=== PATIENT | male | born 1960 | race Caucasian/White ===

== ENCOUNTER 2016-06-13 05:28 | Emergency (ER) | payer OTHER ==
[2016-06-13] MEDS ORDERED: IBUPROFEN 400 MG TABLET (FP) PO ONE (05:33)
--- NOTE | 2016-06-13 05:37 | PDOC ---
History of Present Illness - General Chief Complaint: Ear Problem Stated Complaint: RIGHT EAR PAIN Time Seen by Provider: 06/13/16 05:33 History Source: Patient Exam Limitations: No Limitations - History of Present Illness Initial Comments: 06/13/16 05:35 56 YM DM, HTN; presents to er c/o rt ear ache on and off for 1 week. congestion but no fever. no head ache. no throat pain. no tinnitus. no n/v. n nad Timing/Duration: 1 week Past History - Past Medical History Allergies/Adverse Reactions: Allergies Allergy/AdvReac Type Severity Reaction Status Date / Time No Known Allergies Allergy Verified 05/04/16 03:48 Home Medications: Ambulatory Orders Ramipril 10 mg PO DAILY 12/24/12 Aspirin [ASA -] 325 mg PO DAILY 05/15/14 Atorvastatin Ca [Lipitor] 80 mg PO HS 07/25/14 Ibuprofen 800 mg PO TID #20 tablet 07/28/15 Metformin HCl [Glucophage] 1,000 mg PO BID 07/28/15 Tamsulosin HCl [Flomax] 0.4 mg PO DAILY #7 cap.er.24h 07/28/15 Ondansetron [Zofran Odt -] 4 mg SL BID #14 od.tablet 07/31/15 Oxycodone HCl/Acetaminophen [Percocet 5-325 mg Tablet] 1 - 2 tab PO Q6H PRN #12 tab MDD 8 05/04/16 Anemia: No Asthma: No Cancer: No Cardiac Disorders: No CVA: No COPD: No CHF: No Dementia: No Diabetes: Yes (NIDDM) GI Disorders: Yes (RECTAL BLEEDING) Disorders: Yes (PROSTATITIS) HTN: Yes Hypercholesterolemia: Yes Kidney Stones: Yes Liver Disease: No Seizures: No Thyroid Disease: No - Surgical History Abdominal Surgery: No Appendectomy: No Cardiac Surgery: No Cholecystectomy: No Lung Surgery: No Neurologic Surgery: No Orthopedic Surgery: Yes (FX OF RT ARM) - Immunization History Immunization Up to Date: No - Psycho/Social/Smoking Cessation Hx Anxiety: Yes Suicidal Ideation: No Smoking Status: Yes Smoking History: Current every day smoker Have you smoked in the past 12 months: Yes Number of Cigarettes Smoked Daily: 10 If you are a former smoker, when did you quit?: 1 MONTH AGO 'Breaking Loose' booklet given: 05/04/16 Hx Alcohol Use: Yes (TONIGHT) Drug/Substance Use Hx: No Substance Use Type: Alcohol Hx Substance Use Treatment: No *Physical Exam - Physical Exam General Appearance: Yes: Nourished, Appropriately Dressed. No: Apparent Distress HEENT: positive: EOMI, JOHNNY, Normal ENT Inspection, Hearing Grossly Normal. negative: Hearing Decreased, TM Bulging, TM Dull, TM Erythema Respiratory/Chest: positive: Lungs Clear. negative: Respiratory Distress Cardiovascular: positive: Regular Rhythm, Regular Rate Lymphatic: negative: Adenopathy Neurologic: positive: Fully Oriented, Alert, Normal Mood/Affect, Normal Response , Motor Strength 5/5 *DC/Admit/Observation/Transfer Diagnosis at time of Disposition: Ear pain, right Congested ear Qualifiers: Laterality: right Qualified Code(s): H93.8X1 - Other specified disorders of right ear - Discharge Dispostion Disposition: HOME Condition at time of disposition: Good - Patient Instructions Additional Instructions: PLENTY OF FLUIDS (WATER) MOTRIN/TYLENOL FOR FEVER OR PAIN SUDAFED PRESCRIBED (MONITOR YOUR BLOOD PRESSURE) REST RETURN IF FEVER, VOMITING, SEVERE PAIN SEE YOUR DOCTOR WEDNESDAY
[2016-06-13 05:42] VITALS: BP 159/89; PULSE 89; TEMP 98.2; BMI 40.1
== END 2016-06-13 05:48 | disposition home or self-care (01) ==
LOC: FER 05:28
DX: H93.8X1 Other specified disorders of right ear (principal); I10 Essential (primary) hypertension; E11.9 Type 2 diabetes mellitus without complications; Z79.84 Long term (current) use of oral hypoglycemic drugs; E78.00 Pure hypercholesterolemia, unspecified; F17.210 Nicotine dependence, cigarettes, uncomplicated
CPT/HCPCS: 99282-25

== ENCOUNTER 2016-11-07 16:40 | Emergency (ER) | payer OTHER ==
[2016-11-07] MEDS ORDERED: KETOROLAC TROMETHAMINE 60 MG/2 ML VIAL IM ONE (17:06)
--- NOTE | 2016-11-07 17:08 | PDOC ---
History of Present Illness - General Chief Complaint: Pain, Acute Stated Complaint: KIDNEY STONE Time Seen by Provider: 11/07/16 17:06 History Source: Patient Exam Limitations: No Limitations - History of Present Illness Initial Comments: 11/07/16 17:06 The patient is a 56-year-old male with a significant past medical history of ureterolithiasis (approximately 12 episodes) who presents to the emergency department with left flank pain. He states that the pain began suddenly approximately 2 hours ago, and has been waxing and waning. At maximum intensity he rates it as severe pain. It is a sharp stabbing pain. It is identical to his prior episodes of ureterolithiasis. He has nausea but no vomiting. He reports urinary urgency and hesitancy, but denies dysuria, hematuria. He denies abdominal pain. He denies lower extremity weakness or paresthesias. Past History - Past Medical History Allergies/Adverse Reactions: Allergies Allergy/AdvReac Type Severity Reaction Status Date / Time No Known Allergies Allergy Verified 05/04/16 03:48 Home Medications: Ambulatory Orders Ramipril 10 mg PO DAILY 12/24/12 Aspirin [ASA -] 81 mg PO DAILY 05/15/14 Atorvastatin Ca [Lipitor] 80 mg PO HS 07/25/14 Metformin HCl [Glucophage] 1,000 mg PO BID 07/28/15 Naproxen [Naprosyn] 500 mg PO BID PRN #20 tablet 11/07/16 Oxycodone HCl/Acetaminophen [Percocet 5-325 mg Tablet] 1 - 2 combo PO Q4H PRN # 20 tablet MDD 6 11/07/16 Tamsulosin HCl [Flomax] 0.4 mg PO DAILY #7 capsule 11/07/16 Anemia: No Asthma: No Cancer: No Cardiac Disorders: No CVA: No COPD: No CHF: No Dementia: No Diabetes: Yes (NIDDM) GI Disorders: Yes (RECTAL BLEEDING) Disorders: Yes (PROSTATITIS) HTN: Yes Hypercholesterolemia: Yes Kidney Stones: Yes Liver Disease: No Seizures: No Thyroid Disease: No - Surgical History Abdominal Surgery: No Appendectomy: No Cardiac Surgery: No Cholecystectomy: No Lung Surgery: No Neurologic Surgery: No Orthopedic Surgery: Yes (FX OF RT ARM) - Immunization History Immunization Up to Date: No - Psycho/Social/Smoking Cessation Hx Anxiety: Yes Suicidal Ideation: No Smoking Status: Yes Smoking History: Current every day smoker Have you smoked in the past 12 months: Yes Number of Cigarettes Smoked Daily: 10 If you are a former smoker, when did you quit?: 1 MONTH AGO 'Breaking Loose' booklet given: 06/13/16 Hx Alcohol Use: Yes (TONIGHT) Drug/Substance Use Hx: No Substance Use Type: Alcohol Hx Substance Use Treatment: No Review of Systems - Review of Systems Comments:: 11/07/16 17:07 CONSTITUTIONAL: Absent: fever, chills, diaphoresis, generalized weakness, malaise, loss of appetite HEENT: Absent: rhinorrhea, nasal congestion, throat pain, throat swelling, difficulty swallowing, mouth swelling, ear pain, eye pain, visual Changes CARDIOVASCULAR: Absent: chest pain, loss of consciousness, palpitations, irregular heart rate, peripheral edema RESPIRATORY: Absent: cough, shortness of breath, dyspnea with exertion, orthopnea, wheezing, stridor, hemoptysis GASTROINTESTINAL: Present: Nausea Absent: abdominal pain, abdominal distension, vomiting, diarrhea, constipation, melena, hematochezia GENITOURINARY: Present: Flank pain, urgency, hesitancy Absent: dysuria, frequency, hematuria, genital pain MUSCULOSKELETAL: Absent: myalgia, arthralgia, joint swelling SKIN: Absent: rash, itching, pallor HEMATOLOGIC/IMMUNOLOGIC: Absent: easy bleeding, easy bruising, lymphadenopathy, frequent infections ENDOCRINE: Absent: unexplained weight gain, unexplained weight loss, heat intolerance, cold intolerance NEUROLOGIC: Absent: headache, focal weakness or paresthesias, dizziness, unsteady gait, seizure, mental status changes, bladder or bowel incontinence PSYCHIATRIC: Absent: anxiety, depression, suicidal or homicidal ideation, hallucinations. *Physical Exam - Physical Exam Comments: 11/07/16 17:08 GENERAL: Well developed, well nourished. Awake and alert. No acute distress. HEENT: Normocephalic, atraumatic. PERRLA, EOMI. No conjunctival pallor. Sclera are non- icteric. Moist mucous membranes. Oropharynx is clear. NECK: Supple. Full ROM. No JVD. Carotid pulses 2+ and symmetric, without bruits. No thyromegaly. No lymphadenopathy. CARDIOVASCULAR: Regular rate and rhythm. No murmurs, rubs, or gallops. Distal pulses are 2+ and symmetric. PULMONARY: No evidence of respiratory distress. Lungs clear to auscultation bilaterally. No wheezing, rales or rhonchi. ABDOMINAL: Soft. Non-tender. Non-distended. No rebound or guarding. No organomegaly. Normoactive bowel sounds. MUSCULOSKELETAL Left-sided CVA tenderness Normal range of motion at all joints. No bony deformities or tenderness. EXTREMITIES: No cyanosis. No clubbing. No edema. No calf tenderness. SKIN: Warm and dry. Normal capillary refill. No rashes. No jaundice. NEUROLOGICAL: Alert, awake, appropriate. Cranial nerves 2-12 intact. No deficits to light touch and temperature in face, upper extremities and lower extremities. No motor deficits in the in face, upper extremities and lower extremities. Normoreflexic in the upper and lower extremities. Normal speech. Toes are down- going bilaterally. Gait is normal without ataxia. PSYCHIATRIC: Cooperative. Good eye contact. Appropriate mood and affect. Medical Decision Making - Medical Decision Making 11/07/16 17:08 The patient is well-appearing and in no acute distress His clinical presentation is consistent with ureterolithiasis He denies a history of renal disease, and would prefer to avoid extensive workup , including labs and imaging Will administer intramuscular Toradol and observe Will obtain urinalysis 11/07/16 17:31 Pain is significantly improved Urinalysis noted, without evidence of infection Will administer Percocet and continue to observe 11/07/16 17:44 Pain is almost completely resolved He would like to go home He understands the need to return for further workup including imaging to rule out hydroureter/hydronephrosis, should his symptoms return or worsen Clinical impression: Ureterolithiasis I discussed the physical exam findings, ancillary test results and final diagnoses with the patient. I answered all of the patient's questions. The patient was satisfied with the care received and felt comfortable with the discharge plan and treatment plan. The patient will call their primary care physician within 24 hours to arrange follow-up and will return to the Emergency Department with any new, persistent or worsening symptoms. *DC/Admit/Observation/Transfer Diagnosis at time of Disposition: Renal colic on left side - Discharge Dispostion Disposition: HOME Condition at time of disposition: Improved - Prescriptions Prescriptions: Tamsulosin HCl [Flomax] 0.4 mg PO DAILY #7 capsule Naproxen [Naprosyn] 500 mg PO BID PRN #20 tablet PRN Reason: Pain Oxycodone HCl/Acetaminophen [Percocet 5-325 mg Tablet] 1 - 2 combo PO Q4H PRN # 20 tablet MDD 6 PRN Reason: Pain - Referrals Referrals: Nile Martinez MD [Staff Physician] - Call tomorrow - Patient Instructions Printed Discharge Instructions: DI for Kidney Stones Additional Instructions: Return to the emergency department immediately with ANY new, persistent or worsening symptoms. You MUST call and follow up with your doctor tomorrow. Please make sure your doctor reviews the results of your emergency department evaluation. - Post Discharge Activity Work/School Note: Back to Work
[2016-11-07 17:18] LABS: URINE APPEARANCE Clear; URINE BILIRUBIN Negative (NEGATIVE); URINE GLUCOSE (UA) Trace (NEGATIVE); URINE KETONE Trace (NEGATIVE); URINE LEUK ESTERASE Negative (NEGATIVE); URINE NITRITE Negative (NEGATIVE); URINE UROBILINOGEN 0.2 E.U/dl (0.2-1.0)
[2016-11-07 17:20] LABS: URINE BLOOD 3+ (NEGATIVE); URINE COLOR YELLOW; URINE PROTEIN 1+ (NEGATIVE)
[2016-11-07] MEDS ORDERED: ONDANSETRON *ODT* 4 MG TABLET SL ONE (17:27)
[2016-11-07] MEDS ORDERED: OXYCODONE/APAP 5/325MG COMBO TABLET PO ONE (17:27)
[2016-11-07] MEDS ORDERED: ONDANSETRON *ODT* 4 MG TABLET ONE ×2 (17:35→17:38)
[2016-11-07 17:59] VITALS: BP 152/106; PULSE 108; TEMP 98.3; BMI 40.1
[2016-11-07 18:18] LABS: URINE RBC 60-80 /hpf (0-3)
== END 2016-11-07 18:05 | disposition home or self-care (01) ==
LOC: FER 16:40
PROC: 3E0233Z Introduction of Anti-inflammatory into Muscle, Percutaneous Approach (ICD-10-PCS; principal; 2016-11-07)
DX: N23 Unspecified renal colic (principal); F17.210 Nicotine dependence, cigarettes, uncomplicated; E11.9 Type 2 diabetes mellitus without complications; K62.5 Hemorrhage of anus and rectum; I10 Essential (primary) hypertension; E78.00 Pure hypercholesterolemia, unspecified; Z87.442 Personal history of urinary calculi
CPT/HCPCS: 81003; 81015; 99282-25

== ENCOUNTER 2016-11-14 23:52 | Emergency (ER) | payer OTHER ==
[2016-11-15] MEDS ORDERED: KETOROLAC TROMETHAMINE 60 MG/2 ML VIAL IM ONE (00:11)
--- NOTE | 2016-11-15 00:11 | PDOC ---
History of Present Illness - General Chief Complaint: Pain, Acute Stated Complaint: LT FLANK PAIN Time Seen by Provider: 11/14/16 23:56 - History of Present Illness Initial Comments: This 56-year-old man with a long history of recurrent kidney stones presents with his usual sharp, intermittent pain consistent with ureterolithiasis last several hours. Patient was here one week ago with similar episode. Pain resolved after Toradol IM shot followed by Percocet by mouth. Since then, he has had intermittent episodes responsive to medications. He is also noted passage of several intact stones during the past week. Patient states that this is not unusual when he has episodes of kidney stone pain. He denies hematuria/dysuria/urgency. There has been no fever/chills/vomiting. He also states that he has no nausea and has been able to take plenty of fluids by mouth. Patient prefers not to have laboratory diagnostic follow-up or CT imaging at this time. He states that he has follow-up with his urologist (office on [facility] in [place]; cannot recall urologist's last name) next week. Past History - Past Medical History Allergies/Adverse Reactions: Allergies Allergy/AdvReac Type Severity Reaction Status Date / Time No Known Allergies Allergy Verified 11/07/16 17:51 Home Medications: Ambulatory Orders Ramipril 10 mg PO DAILY 12/24/12 Aspirin [ASA -] 81 mg PO DAILY 05/15/14 Atorvastatin Ca [Lipitor] 80 mg PO HS 07/25/14 Metformin HCl [Glucophage] 1,000 mg PO BID 07/28/15 Naproxen [Naprosyn] 500 mg PO BID PRN #20 tablet 11/07/16 Ondansetron [Zofran *Odt*] 8 mg SL TID PRN #14 od.tablet 11/07/16 Oxycodone HCl/Acetaminophen [Percocet 5-325 mg Tablet] 1 - 2 combo PO Q4H PRN # 20 tablet MDD 6 11/07/16 Tamsulosin HCl [Flomax] 0.4 mg PO DAILY #7 capsule 11/07/16 Oxycodone HCl/Acetaminophen [Percocet 5-325 mg Tablet] 1 - 2 tab PO Q4H #12 tablet MDD 3 tabs 11/15/16 Oxycodone HCl/Acetaminophen [Percocet 5-325 mg Tablet] 1 - 2 tab PO Q4H PRN #12 tablet MDD 3 tabs 11/15/16 Anemia: No Asthma: No Cancer: No Cardiac Disorders: No CVA: No COPD: No CHF: No Dementia: No Diabetes: Yes (NIDDM) GI Disorders: Yes (RECTAL BLEEDING) Disorders: Yes (PROSTATITIS) HTN: Yes Hypercholesterolemia: Yes Kidney Stones: Yes Liver Disease: No Seizures: No Thyroid Disease: No - Surgical History Abdominal Surgery: No Appendectomy: No Cardiac Surgery: No Cholecystectomy: No Lung Surgery: No Neurologic Surgery: No Orthopedic Surgery: Yes (FX OF RT ARM) - Immunization History Immunization Up to Date: No - Psycho/Social/Smoking Cessation Hx Anxiety: Yes Suicidal Ideation: No Smoking Status: Yes Smoking History: Current every day smoker Have you smoked in the past 12 months: Yes Number of Cigarettes Smoked Daily: 10 If you are a former smoker, when did you quit?: 1 MONTH AGO 'Breaking Loose' booklet given: 06/13/16 Hx Alcohol Use: Yes (TONIGHT) Drug/Substance Use Hx: No Substance Use Type: Alcohol Hx Substance Use Treatment: No Abd/GI Specific PMHX - Complaint Specific PMHX GERD: No Review of Systems - Review of Systems Able to Perform ROS?: Yes Comments:: 12 point review of systems is negative except for what is noted in the history of present illness *Physical Exam - Physical Exam Comments: GENERAL: Adult male, in mild distress secondary to left flank pain (pacing exam room) HEAD: Normal with no signs of trauma. EYES: PERRLA, EOMI, sclera anicteric, conjunctiva clear. ENT: Ears normal, nares patent, oropharynx clear without exudates. Dry mucous membranes. NECK: Normal range of motion, supple without lymphadenopathy, JVD, or masses. LUNGS: Breath sounds equal, clear to auscultation bilaterally. No wheezes, and no crackles. HEART:Regular rate and rhythm, normal S1 and S2 without murmur, rub or gallop. ABDOMEN:.normal bowel sounds No guarding, abdominal tenderness or rebound.No masses No distention. Positive left CVA/left flank tenderness EXTREMITIES: Normal range of motion, no edema. No clubbing or cyanosis. No erythema, or tenderness. NEUROLOGICAL: Cranial nerves II through XII grossly intact. Normal speech. No focal neurologic deficit SKIN: Warm, Dry, normal turgor, no rashes or lesions noted. Medical Decision Making - Medical Decision Making Pain has resolved completely after Toradol 60 mg IM. Patient wishes to be discharged now with follow-up with his urologist in this coming week. Urinalysis shows no evidence of urinary tract infection Patient will be discharged with instructions to continue drink plenty of water; you can use [id number] ibuprofen/naproxen/acetaminophen as needed for mild -to-moderate pain. Patient will be given a small (#12) prescription for Percocet 5/325 to be taken up to 3 times a day as needed for severe pain. He should return to the emergency room if he has persistent severe pain or develops vomiting/fever. Patient should follow-up with his urologist this coming week as previously scheduled. He understands that in the future, if he has persistent, recurrent symptoms of kidney stones, he may need diagnostic evaluation including lab work and CT imaging. *DC/Admit/Observation/Transfer Diagnosis at time of Disposition: Renal colic - Discharge Dispostion Disposition: HOME Condition at time of disposition: Stable - Prescriptions Prescriptions: Oxycodone HCl/Acetaminophen [Percocet 5-325 mg Tablet] 1 - 2 tab PO Q4H PRN #12 tablet MDD 3 tabs PRN Reason: Severe Pain Oxycodone HCl/Acetaminophen [Percocet 5-325 mg Tablet] 1 - 2 tab PO Q4H #12 tablet MDD 3 tabs - Referrals Referrals: Mahi Ramos MD [Primary Care Provider] - - Patient Instructions Printed Discharge Instructions: Kidney Stones -- Adult Additional Instructions: Drink plenty of fluids Ibuprofen/acetaminophen/naproxen as needed for mild pain Percocet 5/325 as needed for severe pain Follow-up with your urologist this coming week as scheduled Return to ER if you have severe, unrelenting pain or experience vomiting/fever
[2016-11-15] MEDS ORDERED: KETOROLAC TROMETHAMINE 60 MG/2 ML VIAL ONE (00:13)
[2016-11-15 00:26] VITALS: BP 108/63; PULSE 108; TEMP 99.2; BMI 40.1
[2016-11-15 00:30] LABS: URINE APPEARANCE CLEAR; URINE BILIRUBIN NEGATIVE (NEGATIVE); URINE BLOOD NEGATIVE (NEGATIVE); URINE COLOR LTYELLOW; URINE GLUCOSE (UA) 3+ (NEGATIVE); URINE KETONE TRACE (NEGATIVE); URINE LEUK ESTERASE NEGATIVE (NEGATIVE); URINE NITRITE NEGATIVE (NEGATIVE); URINE UROBILINOGEN NEGATIVE E.U./dl (0.2-1.0)
[2016-11-15 00:33] LABS: URINE PROTEIN 1+ (NEGATIVE)
[2016-11-15 01:04] LABS: URINE BACTERIA RARE /hpf (NONE SEEN); URINE RBC 1 /hpf (0-3); URINE WBC 1 /hpf (3-5)
== END 2016-11-15 00:52 | disposition home or self-care (01) ==
LOC: FER 23:52
PROC: 3E0233Z Introduction of Anti-inflammatory into Muscle, Percutaneous Approach (ICD-10-PCS; principal; 2016-11-14)
DX: N23 Unspecified renal colic (principal); F17.210 Nicotine dependence, cigarettes, uncomplicated; E11.9 Type 2 diabetes mellitus without complications; I10 Essential (primary) hypertension; E78.00 Pure hypercholesterolemia, unspecified
CPT/HCPCS: 81003; 81015; 99281-25

== ENCOUNTER 2017-01-10 14:43 | Emergency (ER) | payer OTHER ==
--- NOTE | 2017-01-10 14:58 | PDOC ---
History of Present Illness - General History Source: Patient Exam Limitations: No Limitations - History of Present Illness Initial Comments: 01/10/17 15:20 The patient is a morbidly obese male with a significant past medical history of recurrent kidney stones, bladder infection, HTN, diabetes, who presents to the ED with lower back pain radiating down both legs for the past several days. Patient states he was mowing his lawn when he aggravated recurrent back injury. Patient states he took 1 oxycodone with little to no alleviation. Patient states the pain alleviates while laying down. Patient denies any trauma. Patient denies head pain, neck pain. Patient denies fever, chills, nausea, vomiting, diarrhea. Patient denies urinary incontinence or bowel incontinence. Denies dysuria, frequency, hematuria. Patient denies any allergies. Patient denies any significant past surgical hx. Patient occasionally drinks alcohol. Patient smokes cigarettes occasionally. <Stuart Hutson - Last Filed: 01/10/17 15:20> <Patrica Purcell - Last Filed: 01/10/17 16:01> - General Chief Complaint: Pain, Acute Stated Complaint: BACK PAIN RADIATES DOWN RIGHT LEG Time Seen by Provider: 01/10/17 14:58 Past History <Stuart Hutson - Last Filed: 01/10/17 15:20> - Past Medical History Anemia: No Asthma: No Cancer: No Cardiac Disorders: No CVA: No COPD: No CHF: No Dementia: No Diabetes: Yes (NIDDM) GI Disorders: Yes (RECTAL BLEEDING) Disorders: Yes (PROSTATITIS) HTN: Yes Hypercholesterolemia: Yes Kidney Stones: Yes Liver Disease: No Seizures: No Thyroid Disease: No - Surgical History Abdominal Surgery: No Appendectomy: No Cardiac Surgery: No Cholecystectomy: No Lung Surgery: No Neurologic Surgery: No Orthopedic Surgery: Yes (FX OF RT ARM) - Immunization History Immunization Up to Date: No - Psycho/Social/Smoking Cessation Hx Anxiety: Yes Suicidal Ideation: No Smoking Status: Yes Smoking History: Current every day smoker Have you smoked in the past 12 months: Yes Number of Cigarettes Smoked Daily: 10 If you are a former smoker, when did you quit?: 1 MONTH AGO 'Breaking Loose' booklet given: 06/13/16 Hx Alcohol Use: Yes (TONIGHT) Drug/Substance Use Hx: No Substance Use Type: Alcohol Hx Substance Use Treatment: No <Patrica Purcell - Last Filed: 01/10/17 16:01> - Past Medical History Allergies/Adverse Reactions: Allergies Allergy/AdvReac Type Severity Reaction Status Date / Time No Known Allergies Allergy Verified 01/10/17 14:44 Home Medications: Ambulatory Orders Ramipril 10 mg PO DAILY 12/24/12 Aspirin [ASA -] 81 mg PO DAILY 05/15/14 Atorvastatin Ca [Lipitor] 80 mg PO HS 07/25/14 Metformin HCl [Glucophage] 1,000 mg PO BID 07/28/15 Oxycodone HCl/Acetaminophen [Percocet 5-325 mg Tablet] 1 - 2 tab PO Q4H #12 tablet MDD 3 tabs 11/15/16 Review of Systems - Review of Systems Able to Perform ROS?: Yes Comments:: 01/10/17 15:21 GENERAL/CONSTITUTIONAL: No fever or chills. No weakness. HEAD, EYES, EARS, NOSE AND THROAT: No change in vision. No ear pain or discharge. No sore throat. CARDIOVASCULAR: No chest pain or shortness of breath. RESPIRATORY: No cough, wheezing, or hemoptysis. GASTROINTESTINAL: No nausea, vomiting, diarrhea or constipation. GENITOURINARY: No dysuria, frequency, or change in urination. MUSCULOSKELETAL: + lower back pain radiating down both legs. No joint or muscle swelling or pain. No neck pain. SKIN: No rash NEUROLOGIC: No headache, vertigo, loss of consciousness, or change in strength/ sensation. ENDOCRINE: No increased thirst. No abnormal weight change. HEMATOLOGIC/LYMPHATIC: No anemia, easy bleeding, or history of blood clots. ALLERGIC/IMMUNOLOGIC: No hives or skin allergy. <Stuart Hutson - Last Filed: 01/10/17 15:20> *Physical Exam - Vital Signs Last Vital Signs Temp Pulse Resp BP Pulse Ox 98.1 F 99 H 20 108/72 96 01/10/17 14:44 01/10/17 14:44 01/10/17 14:44 01/10/17 14:44 01/10/17 14:44 - Physical Exam Comments: 01/10/17 15:21 GENERAL: Awake, alert, and fully oriented, in no acute distress. Morbidly obese. HEAD: No signs of trauma EYES: PERRLA, EOMI, sclera anicteric, conjunctiva clear ENT: Auricles normal inspection, hearing grossly normal, nares patent, oropharynx clear without exudates. Moist mucosa NECK: Normal ROM, supple, no lymphadenopathy, JVD, or masses LUNGS: Breath sounds equal, clear to auscultation bilaterally. No wheezes, and no crackles HEART: Regular rate and rhythm, normal S1 and S2, no murmurs, rubs or gallops BACK: no point tenderness no paraspinal tenderness no cva tenderness. ABDOMEN: Soft, nontender, normoactive bowel sounds. No guarding, no rebound. No masses EXTREMITIES: Normal range of motion, no edema. No clubbing or cyanosis. No cords, erythema, or tenderness NEUROLOGICAL: Cranial nerves II through XII grossly intact. Normal speech, normal gait. 5/5 strength with plantar and dorsal function, and Great toe extension bilaterally. SKIN: Warm, Dry, normal turgor, no rashes or lesions noted. <Stuart Hutson - Last Filed: 01/10/17 15:20> Medical Decision Making - Medical Decision Making 01/10/17 15:25 Pt presents to the ED complaining of an acute exacerbation of his chronic sciatica. Reports that the pain has been present for several days, but that it became acutely worse today. No signs or symptoms consistent with cord compression, no urinary complaints, no history of trauma. No indication for imaging at this time. Will treat with toradol and reassess. 01/10/17 15:59 <Patrica Purcell - Last Filed: 01/10/17 16:01> *DC/Admit/Observation/Transfer - Attestations Scribe Attestion: 01/10/17 15:22 Documentation prepared by Stuart Hutson, acting as registered medical transcriptionist for Patrica Purcell MD, MD. <Stuart Hutson - Last Filed: 01/10/17 15:20> - Discharge Dispostion Admit: No <Patrica Purcell - Last Filed: 01/10/17 16:01> Diagnosis at time of Disposition: Sciatica Qualifiers: Laterality: bilateral Qualified Code(s): M54.31 - Sciatica, right side; M54.32 - Sciatica, left side - Discharge Dispostion Disposition: HOME Condition at time of disposition: Good - Patient Instructions Printed Discharge Instructions: DI for Sciatica Additional Instructions: return to the ED for severe pain, pain with fever, problems controlling your bowels or your bladder, weakness or numbness of your feet or legs.
[2017-01-10 14:59] VITALS: BP 108/72; PULSE 99; TEMP 98.1; BMI 39.0
[2017-01-10] MEDS ORDERED: KETOROLAC TROMETHAMINE 60 MG/2 ML VIAL IM ONE (15:04)
[2017-01-10] MEDS ORDERED: KETOROLAC TROMETHAMINE 60 MG/2 ML VIAL ONE (15:07)
== END 2017-01-10 16:10 | disposition home or self-care (01) ==
LOC: FER 14:43
PROC: 3E0233Z Introduction of Anti-inflammatory into Muscle, Percutaneous Approach (ICD-10-PCS; principal; 2017-01-10)
DX: M54.32 Sciatica, left side (principal)
CPT/HCPCS: 99282-25

== ENCOUNTER 2017-06-11 08:38 | Day surgery (SDC) | payer OTHER ==
[2017-06-10 11:43] VITALS: BMI 41.4
[2017-06-11] MEDS ORDERED: PROPOFOL 20 ML ONE ×5 (09:06)
[2017-06-11] MEDS ORDERED: LIDOCAINE HCL/PF 2% SDV 5ML VIAL ONE (09:06)
[2017-06-11 10:01] VITALS: TEMP 98
[2017-06-11 11:10] VITALS: BP 122/86; PULSE 86
== END 2017-06-11 10:45 | disposition home or self-care (01) ==
LOC: JASU-ENDO 08:38
PROVIDERS: ATTEND Internal Medicine Gastroenterology
PROC: 0DJD8ZZ Inspection of Lower Intestinal Tract, Via Natural or Artificial Opening Endoscopic (ICD-10-PCS; principal; 2017-06-11 09:30)
DX: Z86.010 Personal history of colon polyps (principal); K57.30 Diverticulosis of large intestine without perforation or abscess without bleeding
CPT/HCPCS: 82962